=== PATIENT | female | born 1950 | race Caucasian/White ===

== ENCOUNTER → 2019-04-07 09:49 | Outpatient (CLI) | payer MEDICARE, BC | END | disposition home or self-care (01) | LOC: D.MRI 09:49 | PROVIDERS: ATTEND Clinical Nurse Specialist Family Health | DX: M54.12 Radiculopathy, cervical region (principal); M25.511 Pain in right shoulder ==

== ENCOUNTER → 2019-12-30 13:10 | Outpatient (CLI) | payer MEDICARE, BC | END | disposition home or self-care (01) | LOC: D.MRI 13:10 | PROVIDERS: ATTEND Orthopaedic Surgery | DX: M75.101 Unspecified rotator cuff tear or rupture of right shoulder, not specified as traumatic (principal) ==

== ENCOUNTER → 2020-12-23 10:40 | Outpatient (CLI) | payer MEDICARE, BC | END | disposition home or self-care (01) | LOC: D.MRI 10:40 | PROVIDERS: ATTEND Clinical Nurse Specialist Family Health | DX: M75.101 Unspecified rotator cuff tear or rupture of right shoulder, not specified as traumatic (principal) ==